=== PATIENT | female | born 1980 | race Caucasian/White ===

== ENCOUNTER 2022-06-06 09:09 | Emergency (ER) | payer BC ==
[2022-06-06] MEDS ORDERED: Ketorolac 30 MG/ML SDV IVPUSH ONE (09:23)
[2022-06-06] MEDS ORDERED: Ondansetron 4 MG/2 ML SDV IVPUSH ONE (09:26)
[2022-06-06] MEDS ORDERED: Ketorolac 30 MG/ML SDV ONE (09:40)
[2022-06-06] MEDS ORDERED: Ondansetron 4 MG/2 ML SDV ONE (09:40)
[2022-06-06] MEDS ORDERED: Sodium Chloride 0.9% 1,000 ML IV ONE (10:47)
[2022-06-06] MEDS ORDERED: HYDROmorphone 2 MG/ML SDV IVPUSH ONE (11:40)
[2022-06-06] MEDS ORDERED: HYDROmorphone 2 MG/ML Syringe IVPUSH ONE (11:42)
[2022-06-06] MEDS ORDERED: HYDROmorphone 2 MG/ML Syringe ONE (11:51)
== END 2022-06-06 12:05 | disposition home or self-care (01) ==
LOC: LB.ED 09:09
DX: K52.9 Noninfective gastroenteritis and colitis, unspecified (principal); Z72.0 Tobacco use
CPT/HCPCS: 36415; 74176; 80053; 81001; 81025; 85025; 96361; 96374; 96375; 99284; J1170; J1885; J2405; J7030

== ENCOUNTER 2024-02-14 21:15 | Emergency (ER) | payer BC ==
[2024-02-14] MEDS: Lidocaine 1% with EPINEPHrine 1:100,000 20 ML MDV INJECT ONE (22:00)
[2024-02-14] MEDS ORDERED: Amoxicillin/Clavulanate K 875-125 MG Tab ONE (22:30)
[2024-02-14] MEDS: Diphtheria,Pertussis(Acell),Tetanus Vaccine 0.5 ML Syringe IM ONE (22:40)
[2024-02-14] MEDS: Amoxicillin/Clavulanate K 875-125 MG Tab ONE (22:56)
== END 2024-02-14 22:45 | disposition home or self-care (01) ==
LOC: SUPCPDRO 21:15 → LB.ED 21:15
DX: S41.152A Open bite of left upper arm, initial encounter (principal); Z23 Encounter for immunization; W54.0XXA Bitten by dog, initial encounter
CPT/HCPCS: 12002; 90471; 90715; 99283-25; A9270-GY

== ENCOUNTER 2025-03-10 16:54 | Emergency (ER) | payer BC | END 2025-03-10 17:33 | LOC: LB.ED 16:54 | DX: O99.891 Other specified diseases and conditions complicating pregnancy (principal); R10.30 Lower abdominal pain, unspecified; Z87.42 Personal history of other diseases of the female genital tract; Z3A.20 20 weeks gestation of pregnancy | CPT/HCPCS: 99283; 99285; A0425; A0427 ==